=== PATIENT | female | born 1970 | race Caucasian/White ===

== ENCOUNTER 2017-10-23 13:29 | Emergency (ER) | payer OTHER ==
[2017-10-23 13:43] VITALS: BP 123/68; PULSE 71; RESP 18; TEMP 97; O2SAT 99
--- NOTE | 2017-10-23 14:29 | ED PDOC ---
Lower Extremity Pain/Injury Time Seen by Provider: 10/23/17 13:55 Chief Complaint (Nursing): Lower Extremity Problem/Injury Chief Complaint (Provider): Left Foot Pain History Per: Patient History/Exam Limitations: no limitations Onset/Duration Of Symptoms: Days (x4) Current Symptoms Are (Timing): Still Present Additional Complaint(s): Gabriela Conner is a 47 year old female with no significant past medical history who presents to the ED complaining of left foot pain x4 days. Patient states she was outside walking on Sunday when she hyperflexed her left foot. Confirms pain with walking. Reports she took Naproxen without relief. PMD: Non-[facility] Provider Past Medical History Reviewed: Historical Data Vital Signs: Last Vital Signs Temp 97.0 F L 10/23/17 13:39 Pulse 71 10/23/17 13:39 Resp 18 10/23/17 13:39 BP 123/68 10/23/17 13:39 Pulse Ox 99 10/23/17 13:39 - Family History Family History: States: Unknown Family Hx - Home Medications Home Medications: Ambulatory Orders Medication Instructions Recorded Ibuprofen [Motrin] 400 mg PO Q6 #30 tab 10/23/17 - Allergies Allergies/Adverse Reactions: Allergies Allergy/AdvReac Type Severity Reaction Status Date / Time No Known Allergies Allergy Verified 10/23/17 13:39 Review of Systems ROS Statement: Except As Marked, All Systems Reviewed And Found Negative Musculoskeletal: Positive for: Foot Pain (left) Physical Exam - Reviewed Nursing Documentation Reviewed: Yes Vital Signs Reviewed: Yes - Physical Exam Appears: Positive for: Well, Non-toxic, No Acute Distress Head Exam: Positive for: ATRAUMATIC, NORMAL INSPECTION, NORMOCEPHALIC Skin: Positive for: Normal Color, Warm, DRY Eye Exam: Positive for: EOMI, Normal appearance, PERRL Pulses-Dorsalis Pedis (L): 2+ Pulses-Post. Tibialis (L): 2+ Extremity: Positive for: Tenderness (dorsum of left foot), Other (Good left foot pulses, upward radiation to knee) Neurologic/Psych: Positive for: Alert, Oriented. Negative for: Motor/Sensory Deficits - ECG O2 Sat by Pulse Oximetry: 99 (RA) Pulse Ox Interpretation: Normal Medical Decision Making Medical Decision Making: Time: 14:05 Initial Impression: Left ankle tenderness and swelling Plan: --X-Ray foot left 3 views --X-Ray ankle left 3 views --Reevaluation Time: 14:29 --X-Rays show no acute fractures --Upon provider evaluation patient is medically stable, and requires no further treatment in the ED at this time. Patient will be discharged home with an marianne wrap, air cast, crutches, and Rx for Motrin. Counseling was provided and all questions were answered regarding diagnosis and need for follow up with Review Consultant. There is agreement to discharge plan. Return if symptoms persist or worsen. Scribe Attestation: Documented by Isaak Alvarez, acting as a scribe for Conchis Claros PA-C Provider Scribe Attestation: All medical record entries made by the Scribe were at my direction and personally dictated by me. I have reviewed the chart and agree that the record accurately reflects my personal performance of the history, physical exam, medical decision making, and the department course for this patient. I have also personally directed, reviewed, and agree with the discharge instructions and disposition. Disposition - Clinical Impression Clinical Impression: Ankle injury, Foot injury - Patient ED Disposition Is Patient to be Admitted: No Counseled Patient/Family Regarding: Studies Performed, Diagnosis, Need For Followup, Rx Given - Disposition Referrals: Podiatry Clinic [Outside] Disposition: Routine/Home Disposition Time: 14:29 Condition: STABLE Prescriptions: Ibuprofen [Motrin] 400 mg PO Q6 #30 tab Instructions: Foot Sprain (ED) Forms: [employer] ([place]), [employer] ED School/Work Excuse
--- NOTE | 2017-10-23 14:37 | RAD ---
PROCEDURE: Left Ankle Radiographs. HISTORY: ankle pain COMPARISON: None FINDINGS: BONES: No acute fracture or destructive bony lesion identified. JOINTS: Normal. No osteoarthritis. Ankle mortise maintained. Talar dome intact SOFT TISSUES: Phlebolith type calcifications are suggested at the anterior pretibial soft tissues above the level the ankle. OTHER FINDINGS: A large plantar calcaneal spur is noted. Vascular calcifications are also identified posteriorly. IMPRESSION: No acute fracture or dislocation identified. Large plantar calcaneal spur is incidentally noted.
--- NOTE | 2017-10-23 14:39 | RAD ---
PROCEDURE: Left Foot Radiographs. HISTORY: injury COMPARISON: None. FINDINGS: BONES: No fracture or destructive bony lesion is identified. JOINTS: Moderate hallux valgus deformity is appreciated at the 1st metatarsophalangeal joint with degenerative joint space narrowing cortical sclerosis appreciate throughout the interphalangeal joints diffusely. SOFT TISSUES: Phleboliths is suggests the anterior pretibial soft tissues incidentally. OTHER FINDINGS: None. IMPRESSION: No acute fracture or dislocation identified identified. Moderate hallux valgus deformity appreciated with lesser additional degenerative changes seen throughout the interphalangeal joints diffusely.
== END 2017-10-23 15:11 | disposition home or self-care (01) ==
LOC: H.ER 13:29
DX: S99.922A Unspecified injury of left foot, initial encounter (principal); S99.912A Unspecified injury of left ankle, initial encounter; X50.9XXA Other and unspecified overexertion or strenuous movements or postures, initial encounter; Y93.01 Activity, walking, marching and hiking

== ENCOUNTER 2018-02-25 11:38 | Observation (INO) | payer OTHER ==
--- NOTE | 2018-02-25 12:04 | ED PDOC ---
HPI: Chest Pain Time Seen by Provider: 02/25/18 11:53 Chief Complaint (Nursing): Chest Pain Chief Complaint (Provider): Chest Pain History Per: Patient History/Exam Limitations: no limitations Onset/Duration Of Symptoms: Sudden Onset Current Symptoms Are (Timing): Better Additional Complaint(s): 47 year old female presents to the emergency department via paramedics for an evaluation of chest pain and dizziness in her home prior to arrival. Paramedics reported patient was bradycardic with a HR of 49 and administered with IV Atropine in field, in which, heart subsequently increased to a normal rate. Currently in ED, patient stated that she no longer experiences chest or palpitations but remains dizzy. PMD: Polina Morrow MD Past Medical History Reviewed: Historical Data, Nursing Documentation, Vital Signs Vital Signs: Last Vital Signs Temp 97 F L 02/25/18 11:43 Pulse 58 L 02/25/18 11:43 Resp 16 02/25/18 11:43 BP 135/84 02/25/18 11:43 Pulse Ox 100 02/25/18 13:08 - Medical History PMH: No Chronic Diseases - Surgical History Surgical History: Denies: No Surg Hx Other surgeries: gastric bypass - Family History Family History: States: Unknown Family Hx - Social History Current smoker - smoking cessation education provided: No Ex-Smoker (has not smoked in the last 12 months): No Alcohol: None Drugs: Denies - Allergies Allergies/Adverse Reactions: Allergies Allergy/AdvReac Type Severity Reaction Status Date / Time No Known Allergies Allergy Verified 02/25/18 11:43 Review of Systems ROS Statement: Except As Marked, All Systems Reviewed And Found Negative Cardiovascular: Positive for: Chest Pain Neurological: Positive for: Dizziness Physical Exam - Reviewed Nursing Documentation Reviewed: Yes Vital Signs Reviewed: Yes - Physical Exam Appears: Positive for: Non-toxic, No Acute Distress Head Exam: Positive for: ATRAUMATIC, NORMAL INSPECTION, NORMOCEPHALIC Cardiovascular/Chest: Positive for: Regular Rate, Rhythm (at approximately 59/ BMP), Chest Non Tender Respiratory: Positive for: Normal Breath Sounds. Negative for: Decreased Breath Sounds, Wheezing, Respiratory Distress Gastrointestinal/Abdominal: Positive for: Normal Exam, Soft. Negative for: Tenderness Extremity: Positive for: Normal ROM (upper/lower) Neurologic/Psych: Positive for: Alert (x3), Oriented. Negative for: Motor/ Sensory Deficits - Laboratory Results Result Diagrams: 02/25/18 12:23 02/25/18 12:23 - ECG O2 Sat by Pulse Oximetry: 100 (RA) Pulse Ox Interpretation: Normal Medical Decision Making Medical Decision Making: Initial Impression: Chest pain; Dizziness Initial Plan: * EKG * CMP * Troponin I * CBC * CXR Time: 1209 --CXR FINDINGS: LUNGS: No active pulmonary disease. PLEURA: No significant pleural effusion identified, no pneumothorax apparent. CARDIOVASCULAR: Cardiomediastinal silhouette prominent. OSSEOUS STRUCTURES: Under changes. VISUALIZED UPPER ABDOMEN: Normal. OTHER FINDINGS: None. IMPRESSION: No active disease. Scribe Attestation: Documented by Elinor Roberto, acting as a scribe for Jose Enrique Aparicio MD. Provider Scribe Attestation: All medical record entries made by the Scribe were at my direction and personally dictated by me. I have reviewed the chart and agree that the record accurately reflects my personal performance of the history, physical exam, medical decision making, and the department course for this patient. I have also personally directed, reviewed, and agree with the discharge instructions and disposition. Disposition - Clinical Impression Clinical Impression: Chest pain, Bradycardia - Patient ED Disposition Is Patient to be Admitted: Yes - Disposition Disposition Time: 13:19 Condition: FAIR Forms: [facility] ([place]aroese) - Pt Status Changed To: Hospital Disposition Of: Observation - POA Present On Arrival: None
--- NOTE | 2018-02-25 12:10 | RAD ---
HISTORY: Bradycardia COMPARISON: No prior. FINDINGS: LUNGS: No active pulmonary disease. PLEURA: No significant pleural effusion identified, no pneumothorax apparent. CARDIOVASCULAR: Cardiomediastinal silhouette prominent. OSSEOUS STRUCTURES: Under changes. VISUALIZED UPPER ABDOMEN: Normal. OTHER FINDINGS: None. IMPRESSION: No active disease.
[2018-02-25 12:31] LABS: BASO # 0.1 K/uL (0.0-0.2); BASO % 0.5 % (0.0-2.0); EOS # 0.1 K/uL (0.0-0.7); EOS % 1.3 % (0.0-4.0); HEMOGLOBIN 12.5 g/dL (12.0-16.0); LYMPH # 1.9 K/uL (1.0-4.3); LYMPH % 18.1 % (20.0-40.0); MEAN CELL VOLUME 85.2 fl (81.0-99.0); MEAN CORPUSCULAR HEMOGLOBIN 27.8 pg (27.0-31.0); MEAN CORPUSCULAR HGB CONC 32.7 g/dL (33.0-37.0); MONO # 0.5 K/uL (0.0-0.8); NEUT # 7.9 K/uL (1.8-7.0); NEUT % 75.1 % (50.0-75.0); RBC 4.48 Mil/uL (3.80-5.20); RED CELL DISTRIBUTION WIDTH 15.3 % (11.5-14.5); WHITE BLOOD COUNT 10.5 K/uL (4.8-10.8)
[2018-02-25 12:52] LABS: ALB/GLOB RATIO 1.1 (1.0-2.1); ALBUMIN 3.7 g/dL (3.5-5.0); ALT/SGPT 32 U/L (9-52); AST/SGOT 23 U/L (14-36); BLOOD UREA NITROGEN 12 mg/dl (7-17); CALCIUM 9.6 mg/dL (8.4-10.2); GFR AFRICAN-AMERICAN > 60; GFR NON-AFRICAN AMERICAN > 60
--- NOTE | 2018-02-26 11:08 | CP.PCM.HP ---
History of Present Illness - History of Present Illness History of Present Illness: CC: chest pain HPI: 47 y/o woman w/ pmh of depression and anxiety brought by EMS to the ED for chest pain. Patient reports chest pain that started in the morning w/ dizziness in her home prior to arrival to ED. Patient denies previous episodes. Chest pain was mid-sternal and non-radiating. Paramedics reported patient was bradycardic with a HR of 49 and administered with IV Atropine in field, in which, heart subsequently increased to a normal rate. Currently, patient denies headaches, dizziness, chest pain, SOB, abdominal pain, nausea, vomiting, diarrhea, dysuria, or fever. PMD: Dr. Polina Morrow PMH: none meds: see med list PSH: gastric bypass Fam: denies SOC: denies smoking, alcohol, and drugs ROS: 12 points assessed and negative unless otherwise reported in HPI Present on Admission - Present on Admission Any Indicators Present on Admission: No History of DVT/PE: No History of Uncontrolled Diabetes: No Urinary Catheter: No Decubitus Ulcer Present: No Review of Systems - Review of Systems All systems: reviewed and no additional remarkable complaints except - Constitutional Constitutional: absent: Fever, Headache - Cardiovascular Cardiovascular: As Per HPI, Chest Pain, Lightheadedness. absent: Palpitations, Pedal Edema - Respiratory Respiratory: absent: Dyspnea - Gastrointestinal Gastrointestinal: absent: Abdominal Pain, Diarrhea, Nausea, Vomiting - Genitourinary Genitourinary: absent: Dysuria - Integumentary Integumentary: absent: Rash - Neurological Neurological: As Per HPI, Dizziness. absent: Headaches Past Patient History - Past Medical History & Family History Past Medical History?: Yes - Past Social History Smoking Status: Never Smoked - ENDOCRINE/METABOLIC Hx Endocrine Disorders: Yes (DM) Hx Diabetes Mellitus Type 2: Yes (NO LONGER BEING TREATED) - HEMATOLOGICAL/ONCOLOGICAL Hx Blood Disorders: Yes (anemia) Hx Anemia: Yes - MUSCULOSKELETAL/RHEUMATOLOGICAL Hx Falls: No - PSYCHIATRIC Hx Anxiety: Yes Hx Depression: Yes Hx Substance Use: No - SURGICAL HISTORY Hx Coronary Artery Bypass Graft: Yes Hx Gastric Bypass Surgery: Yes (2006) - ANESTHESIA Hx Anesthesia: Yes Hx Anesthesia Reactions: No Meds Allergies/Adverse Reactions: Allergies Allergy/AdvReac Type Severity Reaction Status Date / Time No Known Allergies Allergy Verified 02/25/18 11:43 Physical Exam - Constitutional Appears: Non-toxic, No Acute Distress - Head Exam Head Exam: ATRAUMATIC, NORMAL INSPECTION, NORMOCEPHALIC - Eye Exam Eye Exam: Normal appearance - ENT Exam ENT Exam: Mucous Membranes Moist - Neck Exam Neck exam: Positive for: Full Rom. Negative for: Tenderness - Respiratory Exam Respiratory Exam: Clear to Auscultation Bilateral. absent: Accessory Muscle Use , Decreased Breath Sounds, Rales, Rhonchi, Wheezes, Respiratory Distress - Cardiovascular Exam Cardiovascular Exam: REGULAR RHYTHM, RRR. absent: Tachycardia - GI/Abdominal Exam GI & Abdominal Exam: Normal Bowel Sounds, Soft. absent: Distended, Tenderness - Extremities Exam Extremities exam: Negative for: calf tenderness, pedal edema, tenderness - Neurological Exam Neurological exam: Alert, Oriented x3 - Skin Skin Exam: Dry, Intact, Normal Color, Warm Results - Vital Signs Recent Vital Signs: Last Vital Signs Temp 98.3 F 02/26/18 07:41 Pulse 60 02/26/18 07:41 Resp 18 02/26/18 07:41 BP 118/71 02/26/18 07:41 Pulse Ox 100 02/26/18 07:41 - Labs Result Diagrams: 02/25/18 12:23 02/25/18 12:23 Labs: Laboratory Results - last 24 hr 02/25/18 02/25/18 02/25/18 12:23 12:23 21:10 WBC 10.5 RBC 4.48 Hgb 12.5 Hct 38.2 MCV 85.2 MCH 27.8 MCHC 32.7 L RDW 15.3 H Plt Count 223 MPV 9.0 Neut % (Auto) 75.1 H Lymph % (Auto) 18.1 L Cavalier % (Auto) 5.0 Eos % (Auto) 1.3 Baso % (Auto) 0.5 Neut # (Auto) 7.9 H Lymph # (Auto) 1.9 Cavalier # (Auto) 0.5 Eos # (Auto) 0.1 Baso # (Auto) 0.1 Sodium 145 Potassium 4.2 Chloride 109 H Carbon Dioxide 20 L Anion Gap 20 BUN 12 Creatinine 0.7 Est GFR ( Amer) > 60 Est GFR (Non-Af Amer) > 60 Random Glucose 116 H Calcium 9.6 Total Bilirubin 0.7 AST 23 ALT 32 Alkaline Phosphatase 71 Troponin I < 0.0120 < 0.0120 Total Protein 7.2 Albumin 3.7 Globulin 3.4 Albumin/Globulin Ratio 1.1 02/26/18 06:20 WBC RBC Hgb Hct MCV MCH MCHC RDW Plt Count MPV Neut % (Auto) Lymph % (Auto) Cavalier % (Auto) Eos % (Auto) Baso % (Auto) Neut # (Auto) Lymph # (Auto) Cavalier # (Auto) Eos # (Auto) Baso # (Auto) Sodium Potassium Chloride Carbon Dioxide Anion Gap BUN Creatinine Est GFR ( Amer) Est GFR (Non-Af Amer) Random Glucose Calcium Total Bilirubin AST ALT Alkaline Phosphatase Troponin I < 0.0120 Total Protein Albumin Globulin Albumin/Globulin Ratio Assessment & Plan (1) Chest pain Status: Acute - Assessment and Plan (Free Text) Plan: c/w present management c/w home medications EKG: (preliminary) sinus bradycardia, no acute ST elevation/depression, no abnormal T-waves CXR: no active cardiopulmonary disease troponin negative x3 cardiology consult ordered f/u echo monitor for acute changes - Date & Time Date: 02/25/18 Time: 21:00
--- NOTE | 2018-02-26 12:29 | CARD ---
APPROVED REPORT EKG Measurement Heart [id number] <Conclusion> Sinus bradycardia with sinus arrhythmia Moderate voltage criteria for LVH, may be normal variant Borderline ECG
--- NOTE | 2018-02-26 14:46 | CARD ---
APPROVED REPORT EXAM: Two-dimensional and M-mode echocardiogram with Doppler and color Doppler. Other Information Quality : GoodRhythm : Bradycardia INDICATION Chest Pain 2D DIMENSIONS IVSd1.23 (0.7-1.1cm)LVDd4.52 (3.9-5.9cm) LVOT Diameter1.76 (1.8-2.4cm)PWd0.91 (0.7-1.1cm) IVSs1.27 (0.8-1.2cm)LVDs3.01 (2.5-4.0cm) FS (%) 33.5 %PWs1.10 (0.8-1.2cm) M-Mode DIMENSIONS Left Atrium (MM)3.91 (2.5-4.0cm)IVSd0.91 (0.7-1.1cm) Aortic Root3.18 (2.2-3.7cm)LVDd6.29 (4.0-5.6cm) Aortic Cusp Exc.1.76 (1.5-2.0cm)PWd0.94 (0.7-1.1cm) IVSs1.47 cmFS (%) 36 % LVDs4.00 (2.0-3.8cm)PWs1.38 cm Mitral Valve MV E Hvvspwqr66.9cm/sMV DECEL [id number] A Rizecosm31.1cm/s MV EOC01lxV/A ratio0.9MVA (PHT)3.66cm2 TDI Lateral E' Peak V15.24cm/sMedial E' Peak V7.66cm/sE/Lateral E'4.8 E/Medial E'9.5 Pulmonary Valve PV Peak Aiqfrpkd973.5cm/s Tricuspid Valve TR Peak Ejipsnlr986jl/sRAP YEBHHAFR10ioGbTC Peak Gr.23mmHg [id number] LEFT VENTRICLE The left ventricle is normal size. There is normal left ventricular wall thickness. Left ventricle systolic function is normal. The Ejection Fraction is 60-65%. There is normal LV segmental wall motion. Transmitral Doppler flow pattern is Grade I-abnormal relaxation pattern. RIGHT VENTRICLE The right ventricle is normal size. There is normal right ventricular wall thickness. The right ventricular systolic function is normal. ATRIA The left atrium size is normal. The right atrium size is normal. AORTIC VALVE The aortic valve is normal in structure. No aortic regurgitation is present. There is no aortic valvular stenosis. MITRAL VALVE The mitral valve is normal in structure. There is no evidence of mitral valve prolapse. There is no mitral valve stenosis. There is no mitral valve regurgitation noted. TRICUSPID VALVE The tricuspid valve is normal in structure. There is trace tricuspid regurgitation. Right ventricular systolic pressure is estimated at 33 mmHg. There is mild pulmonary hypertension. PULMONIC VALVE The pulmonary valve is normal in structure. There is no pulmonic valvular regurgitation. GREAT VESSELS The aortic root is normal in size. Due to poor image quality, the IVC could not be assessed. PERICARDIAL EFFUSION The pericardium appears normal. <Conclusion> The left ventricle is normal size. There is normal left ventricular wall thickness. There is normal LV segmental wall motion. Left ventricle systolic function is normal. The Ejection Fraction is 60-65%. Transmitral Doppler flow pattern is Grade I-abnormal relaxation pattern.
--- NOTE | 2018-02-26 18:41 | CP.PCM.CON ---
History of Present Illness - History of Present Illness History of Present Illness: Consultation for evaluation of atypical cp and bradycardia HPI: 47-year-old female with past medical history significant for depression and anxiety who was brought in by EMS for evaluation of symptoms of dizziness and palpitations she described having an episode of vague epigastric discomfort accompanied by a sensation of near syncope for which EMS was called she felt mildly lightheaded and dizzy and was noted to be bradycardic with heart rate of 49 he was given a dose of IV atropine with normalization of her heart rate. At baseline she is fairly active takes care of her kids denies any cardiovascular risk factors other than mild obesity does have prior history of gastric bypass surgery. No family history of sudden cardiac or premature CAD. Review of Systems - Review of Systems Systems not reviewed;Unavailable: Acuity of Condition - Constitutional Constitutional: As Per HPI - EENT Eyes: As Per HPI Ears: As Per HPI Nose/Mouth/Throat: As Per HPI - Breasts Breasts: As Per HPI - Cardiovascular Cardiovascular: As Per HPI, Chest Pain, Palpitations - Respiratory Respiratory: As Per HPI - Gastrointestinal Gastrointestinal: As Per HPI - Genitourinary Genitourinary: As Per HPI - Reproductive: Female Reproductive:Female: As Per HPI - Menstruation Menstruation: As Per HPI - Musculoskeletal Musculoskeletal: As Per HPI - Integumentary Integumentary: As Per HPI - Neurological Neurological: As Per HPI - Psychiatric Psychiatric: As Per HPI - Endocrine Endocrine: As Per HPI - Hematologic/Lymphatic Hematologic: As Per HPI Past Patient History - Past Medical History & Family History Past Medical History?: Yes - Past Social History Smoking Status: Never Smoked - ENDOCRINE/METABOLIC Hx Endocrine Disorders: Yes (DM) Hx Diabetes Mellitus Type 2: Yes (NO LONGER BEING TREATED) - HEMATOLOGICAL/ONCOLOGICAL Hx Blood Disorders: Yes (anemia) Hx Anemia: Yes - MUSCULOSKELETAL/RHEUMATOLOGICAL Hx Falls: No - PSYCHIATRIC Hx Anxiety: Yes Hx Depression: Yes Hx Substance Use: No - SURGICAL HISTORY Hx Coronary Artery Bypass Graft: Yes Hx Gastric Bypass Surgery: Yes (2006) - ANESTHESIA Hx Anesthesia: Yes Hx Anesthesia Reactions: No Meds Allergies/Adverse Reactions: Allergies Allergy/AdvReac Type Severity Reaction Status Date / Time No Known Allergies Allergy Verified 02/25/18 11:43 - Medications Medications: Current Medications Clonazepam (Klonopin) 0.5 mg PO Q12 PRN PRN Reason: Anxiety Last Admin: 02/26/18 09:47 Dose: 0.5 mg Fluoxetine HCl (Prozac) 40 mg PO DAILY [facility] Last Admin: 02/26/18 09:48 Dose: 40 mg Folic Acid (Folic Acid) 1 mg PO DAILY [facility] Last Admin: 02/26/18 09:47 Dose: 1 mg Gabapentin (Neurontin) 300 mg PO DAILY [facility] Last Admin: 02/26/18 09:48 Dose: 300 mg Sertraline HCl (Zoloft) 25 mg PO DAILY [facility] Last Admin: 02/26/18 09:49 Dose: 25 mg Trazodone HCl (Desyrel) 50 mg PO HS PRN PRN Reason: Insomnia Physical Exam - Constitutional Appears: Well - Head Exam Head Exam: ATRAUMATIC, NORMAL INSPECTION, NORMOCEPHALIC - Eye Exam Eye Exam: EOMI, Normal appearance, PERRL Pupil Exam: NORMAL ACCOMODATION, PERRL - ENT Exam ENT Exam: Mucous Membranes Moist, Normal Exam - Neck Exam Neck exam: Positive for: Normal Inspection - Respiratory Exam Respiratory Exam: Clear to Auscultation Bilateral, NORMAL BREATHING PATTERN - Cardiovascular Exam Cardiovascular Exam: REGULAR RHYTHM, RRR, +S1, +S2, Systolic Murmur - GI/Abdominal Exam GI & Abdominal Exam: Normal Bowel Sounds, Soft. absent: Tenderness - Extremities Exam Extremities exam: Positive for: normal inspection - Back Exam Back exam: NORMAL INSPECTION - Neurological Exam Neurological exam: Alert, CN II-XII Intact, Normal Gait, Oriented x3, Reflexes Normal - Psychiatric Exam Psychiatric exam: Normal Affect, Normal Mood - Skin Skin Exam: Dry, Intact, Normal Color, Warm Results - Vital Signs Recent Vital Signs: Last Vital Signs Temp 98.2 F 02/26/18 16:10 Pulse 55 L 02/26/18 16:10 Resp 17 02/26/18 16:10 BP 102/64 02/26/18 16:10 Pulse Ox 99 02/26/18 16:10 - Labs Result Diagrams: 02/25/18 12:23 02/25/18 12:23 Labs: Laboratory Results - last 24 hr 02/25/18 02/26/18 21:10 06:20 Troponin I < 0.0120 < 0.0120 Assessment & Plan (1) Palpitations Assessment and Plan: telemetry Status: Acute (2) Bradycardia Assessment and Plan: TSH lyme titers Status: Acute (3) Chest pain Assessment and Plan: echo Status: Acute
[2018-02-26 20:11] VITALS: RESP 18
[2018-02-27 12:04] VITALS: BP 117/79; PULSE 78; TEMP 98; O2SAT 98
--- NOTE | 2018-02-27 13:25 | CP.PCM.DIS ---
Provider - Provider Date of Admission: 02/25/18 13:17 Attending physician: Oumar Singleton MD Time Spent in preparation of Discharge (in minutes): 15 Diagnosis - Discharge Diagnosis (1) Chest pain Status: Acute Hospital Course - Lab Results Lab Results: Most Recent Lab Values WBC 10.5 K/uL (4.8-10.8) 02/25/18 12:23 RBC 4.48 Mil/uL (3.80-5.20) 02/25/18 12:23 Hgb 12.5 g/dL (12.0-16.0) 02/25/18 12:23 Hct 38.2 % (34.0-47.0) 02/25/18 12:23 MCV 85.2 fl (81.0-99.0) 02/25/18 12:23 MCH 27.8 pg (27.0-31.0) 02/25/18 12: MCHC 32.7 g/dL (33.0-37.0) L 02/25/18 12:23 RDW 15.3 % (11.5-14.5) H 02/25/18 12:23 Plt Count 223 K/uL (130-400) 02/25/18 12:23 MPV 9.0 fl (7.2-11.7) 02/25/18 12:23 Neut % (Auto) 75.1 % (50.0-75.0) H 02/25/18 12:23 Lymph % (Auto) 18.1 % (20.0-40.0) L 02/25/18 12:23 [place] % (Auto) 5.0 % (0.0-10.0) 02/25/18 12:23 Eos % (Auto) 1.3 % (0.0-4.0) 02/25/18 12:23 Baso % (Auto) 0.5 % (0.0-2.0) 02/25/18 12:23 Neut # (Auto) 7.9 K/uL (1.8-7.0) H 02/25/18 12:23 Lymph # (Auto) 1.9 K/uL (1.0-4.3) 02/25/18 12:23 [place] # (Auto) 0.5 K/uL (0.0-0.8) 02/25/18 12:23 Eos # (Auto) 0.1 K/uL (0.0-0.7) 02/25/18 12:23 Baso # (Auto) 0.1 K/uL (0.0-0.2) 02/25/18 12:23 Sodium 145 mmol/l (132-148) 02/25/18 12:23 Potassium 4.2 MMOL/L (3.6-5.0) 02/25/18 12:23 Chloride 109 mmol/L (98-107) H 02/25/18 12:23 Carbon Dioxide 20 mmol/L (22-30) L 02/25/18 12:23 Anion Gap 20 (10-20) 02/25/18 12:23 BUN 12 mg/dl (7-17) 02/25/18 12:23 Creatinine 0.7 mg/dl (0.7-1.2) 02/25/18 12:23 Est GFR ( Amer) > 60 02/25/18 12:23 Est GFR (Non-Af Amer) > 60 02/25/18 12:23 POC Glucose (mg/dL) 105 mg/dL (65-110) 02/27/18 00:09 Random Glucose 116 mg/dL (65-105) H 02/25/18 12:23 Calcium 9.6 mg/dL (8.4-10.2) 02/25/18 12:23 Total Bilirubin 0.7 mg/dl (0.2-1.3) 02/25/18 12:23 AST 23 U/L (14-36) 02/25/18 12:23 ALT 32 U/L (9-52) 02/25/18 12:23 Alkaline Phosphatase 71 U/L (38-126) 02/25/18 12:23 Troponin I < 0.0120 ng/mL (0.00-0.120) 02/26/18 06:20 Total Protein 7.2 G/DL (6.3-8.2) 02/25/18 12:23 Albumin 3.7 g/dL (3.5-5.0) 02/25/18 12:23 Globulin 3.4 gm/dL (2.2-3.9) 02/25/18 12:23 Albumin/Globulin Ratio 1.1 (1.0-2.1) 02/25/18 12:23 TSH 3rd Generation 1.28 mIU/ML (0.46-4.68) 02/27/18 11:28 - Hospital Course Hospital Course: 47 y/o woman w/ pmh of depression and anxiety brought by EMS to the ED for chest pain. Patient seen and evaluated in ED. Patient was slightly bradycardic on presentation but otherwise normal vitals. CBC and CMP were WNL. Echo showed EF 60-65%, normal LV systolic function, thickness and motion. EKG was sinus bradycardia w/ sinus arrhythmia. CXR showed no cardiopulmonary disease process. Patient seen by cardiology. Patient reports feeling better. Patient reports mild dizziness w/ change in position but as long as she does not move too fast then she is symptom free. Patient denies chest pain, headaches, SOB, abdominal pain, nausea, vomiting, diarrhea, dysuria, or fever. The patient has been seen, examined, and deemed medically fit for discharge home. The patient is to follow up w/ PMD in 1 week. Discharge Exam - Head Exam Head Exam: ATRAUMATIC, NORMAL INSPECTION, NORMOCEPHALIC - Eye Exam Eye Exam: Normal appearance - ENT Exam ENT Exam: Mucous Membranes Moist - Neck Exam Neck exam: Full Rom - Respiratory Exam Respiratory Exam: Clear to PA & Lateral. absent: Accessory Muscle Use, Decreased Breath Sounds, Rales, Rhonchi, Wheezes, Respiratory Distress - Cardiovascular Exam Cardiovascular Exam: REGULAR RHYTHM. absent: Tachycardia - GI/Abdominal Exam GI & Abdominal Exam: Normal Bowel Sounds, Soft. absent: Distended, Tenderness - Extremities Exam Extremities exam: normal inspection - Neurological Exam Neurological exam: Alert, Oriented x3 - Skin Skin Exam: Dry, Intact, Normal Color, Warm Discharge Plan - Follow Up Plan Condition: FAIR Disposition: HOME/ ROUTINE Additional Instructions: pt. cleared for discharge to Home today by and after bloodwork this morning cont. current meds pt. will f/u with outpatient Referrals: Polina Morrow MD [Family Provider] - Robb Minaya MD [Staff Provider] -
--- NOTE | 2018-02-27 22:02 | CP.PCM.PN ---
Subjective - Date & Time of Evaluation Date of Evaluation: 02/27/18 Time of Evaluation: 11:00 - Subjective Subjective: feeling fine telemetry stable echo reviewed Objective - Vital Signs/Intake and Output Vital Signs (last 24 hours): Temp Pulse Resp BP Pulse Ox 98 F 78 18 117/79 98 02/27/18 12:04 02/27/18 12:04 02/27/18 12:04 02/27/18 12:04 02/27/18 12:04 Intake and Output: 02/27/18 02/28/18 18:59 06:59 Intake Total 1200 Balance 1200 - Labs Labs: 02/25/18 12:23 02/25/18 12:23 - Constitutional Appears: Well - Head Exam Head Exam: ATRAUMATIC, NORMAL INSPECTION, NORMOCEPHALIC - Eye Exam Eye Exam: EOMI, Normal appearance, PERRL Pupil Exam: NORMAL ACCOMODATION, PERRL - ENT Exam ENT Exam: Mucous Membranes Moist, Normal Exam - Neck Exam Neck Exam: Full ROM, Normal Inspection. absent: Lymphadenopathy - Respiratory Exam Respiratory Exam: Clear to Ausculation Bilateral, NORMAL BREATHING PATTERN - Cardiovascular Exam Cardiovascular Exam: REGULAR RHYTHM, +S1, +S2, Murmur - GI/Abdominal Exam GI & Abdominal Exam: Soft, Normal Bowel Sounds. absent: Tenderness - Extremities Exam Extremities Exam: Full ROM, Normal Capillary Refill, Normal Inspection. absent : Joint Swelling, Pedal Edema - Back Exam Back Exam: NORMAL INSPECTION - Neurological Exam Neurological Exam: Alert, Awake, CN II-XII Intact, Normal Gait, Oriented x3 - Psychiatric Exam Psychiatric exam: Normal Affect, Normal Mood - Skin Skin Exam: Dry, Intact, Normal Color, Warm Assessment and Plan (1) Palpitations Assessment & Plan: telmetry stable Status: Acute (2) Bradycardia Assessment & Plan: HR stable TSH and lyme titers pending Status: Acute (3) Chest pain Assessment & Plan: asyptomatic echo reviewed stable to dc home outpt f/u Status: Acute
[2018-03-01 03:49] LABS: 23 KD (IGG) BAND Nonreactive
== END 2018-02-27 14:51 | disposition home or self-care (01) ==
LOC: H.ER 11:38 → H.ERHOLD 13:17 → H.TEL 21:33
PROVIDERS: ADMIT Family Medicine; ATTEND Family Medicine
DX: R07.89 Other chest pain (principal); R00.1 Bradycardia, unspecified; F41.9 Anxiety disorder, unspecified; Z95.1 Presence of aortocoronary bypass graft; Z98.84 Bariatric surgery status
CPT/HCPCS: 36415; 71045; 80053; 82948; 84443; 84484; 85025; 86617; 93005; 93306; 99285; G0378